=== PATIENT | female | born 1940 | race Caucasian/White ===

== ENCOUNTER 2016-09-29 08:22 | Inpatient (IN) | payer OTHER ==
[~2016-09-29] VITALS: Ht 163.8 cm; Wt 109.8 kg
[~2016-09-29 08:22] MED LIST: ALDACTONE25 MG PO; CALCIUM 500 MG1 EACH PO; CARDIZEM LA300 MG PO; CYANOCOBALAMI100 MCG PO; DILAUDID4 MG PO; DILTIAZEM 24HR300 MG PO; FLUOXETINE HCL20 MG PO; LASIX20 MG PO; MYCOSTATIN1 APPLICAT TP; OXYCODONE HCL30 MG PO; PROAIR HFA8.5 GM IH; PROZAC20 MG PO; RANITIDINE HCL300 MG PO; RECLAST5 MG/100 M IV; ROXICODONE15 MG PO; ROXICODONE30 MG PO; SYMBICORT60 INHALAT IH; VALIUM5 MG PO; VITAMIN B-650 M1 PO; VITAMIN B-650 MG PO; VITAMIN B12 100MCG PO; VITAMIN D5000 UNI1 PO; VITAMIN E200 UNI2 PO; XYZAL5 MG PO; ZANAFLEX4 M1 PO; ZANTAC300 MG PO; [UNRECOGNIZED DRUG - OTHER] PO
[2016-09-29] MEDS ORDERED: VITAMIN D35000 UNIT PO (09:49)
[2016-09-29 09:58] VITALS: BP 166/82
[2016-09-29 16:35] VITALS: BP 190/92
[2016-09-29 19:59] VITALS: BP 173/73
[2016-09-29 20:59] VITALS: BP 145/78
[2016-09-30] VITALS (8 sets, daily range): BP systolic 145–198; BP diastolic 72–90
[2016-09-30 06:33] LABS: HEMATOCRIT 36.8 % (36.0-46.0); MCH 29.4 PG (29.0-34.0); MCV 86.6 FL (83-99); MEAN PLAT.VOLUME 9.1 uM^3 (9.5-12.4); PLATELET COUNT 318 K/uL (156-360); RBC DIS.WIDTH-CV 13.6 % (11.8-14.6); RBC DIS.WIDTH-SD 43.1 % (39-53); RED BLOOD COUNT 4.25 M/uL (3.80-5.20); WHITE BLOOD COUNT 16.1 K/uL (4.1-10.2)
[2016-09-30 06:59] LABS: ANION GAP 9 MEQ/L (2-14); CHLORIDE 94 MEQ/L (99-109); GFR ESTIMATE (CALCULATED) > 59 mL/min/; GLUCOSE 183 mg/dL (70-99); MAGNESIUM 1.5 mg/dl (1.3-2.7); POTASSIUM 3.3 MEQ/L (3.7-5.4); SAMPLE HEMOLYSIS CHECK 0; SAMPLE ICTERIC CHECK 0; SAMPLE LIPEMIA CHECK 0; SODIUM 129 MEQ/L (136-147); UREA NITROGEN (BUN) 5 mg/dL (9-23)
[2016-10-01] VITALS (9 sets, daily range): BP systolic 140–218; BP diastolic 70–95
[2016-10-01 05:37] LABS: ANION GAP 13 MEQ/L (2-14); CHLORIDE 98 MEQ/L (99-109); GFR ESTIMATE (CALCULATED) > 59 mL/min/; GLUCOSE 137 mg/dL (70-99); SAMPLE HEMOLYSIS CHECK 1; SAMPLE ICTERIC CHECK 0; SAMPLE LIPEMIA CHECK 0; SODIUM 135 MEQ/L (136-147); UREA NITROGEN (BUN) 7 mg/dL (9-23)
[2016-10-01 05:49] LABS: MAGNESIUM 1.6 mg/dl (1.3-2.7); POTASSIUM 3.6 MEQ/L (3.7-5.4)
[2016-10-02 06:37] LABS: ANION GAP 10 MEQ/L (2-14); CHLORIDE 99 MEQ/L (99-109); GFR ESTIMATE (CALCULATED) > 59 mL/min/; GLUCOSE 115 mg/dL (70-99); MAGNESIUM 1.7 mg/dl (1.3-2.7); POTASSIUM 3.1 MEQ/L (3.7-5.4); SAMPLE HEMOLYSIS CHECK 0; SAMPLE ICTERIC CHECK 0; SAMPLE LIPEMIA CHECK 0; SODIUM 138 MEQ/L (136-147); UREA NITROGEN (BUN) 11 mg/dL (9-23)
[2016-10-02 06:54] LABS: HEMATOCRIT 35.4 % (36.0-46.0); MCH 29.2 PG (29.0-34.0); MCHC 33.3 G/DL (30.0-36.0); MCV 87.6 FL (83-99); MEAN PLAT.VOLUME 9.3 uM^3 (9.5-12.4); PLATELET COUNT 331 K/uL (156-360); RBC DIS.WIDTH-CV 14.2 % (11.8-14.6); RBC DIS.WIDTH-SD 44.7 % (39-53); RED BLOOD COUNT 4.04 M/uL (3.80-5.20)
[2016-10-02 06:55] LABS: WHITE BLOOD COUNT 10.9 K/uL (4.1-10.2)
[2016-10-02 08:30] VITALS: BP 180/70
[2016-10-02 11:30] VITALS: BP 160/91
[2016-10-02 15:19] VITALS: BP 184/86
[2016-10-02 21:02] VITALS: BP 107/80; BP 170/80
[2016-10-03] VITALS (7 sets, daily range): BP systolic 135–180; BP diastolic 67–90
[2016-10-03 06:03] LABS: HEMATOCRIT 35.2 % (36.0-46.0); MCH 29.5 PG (29.0-34.0); MCHC 33.2 G/DL (30.0-36.0); MCV 88.7 FL (83-99); MEAN PLAT.VOLUME 9.5 uM^3 (9.5-12.4); PLATELET COUNT 333 K/uL (156-360); RBC DIS.WIDTH-CV 14.3 % (11.8-14.6); RBC DIS.WIDTH-SD 46.4 % (39-53); RED BLOOD COUNT 3.97 M/uL (3.80-5.20)
[2016-10-03 06:30] LABS: ANION GAP 8 MEQ/L (2-14); CHLORIDE 100 MEQ/L (99-109); GFR ESTIMATE (CALCULATED) > 59 mL/min/; GLUCOSE 131 mg/dL (70-99); MAGNESIUM 1.9 mg/dl (1.3-2.7); SAMPLE HEMOLYSIS CHECK 0; SAMPLE ICTERIC CHECK 0; SAMPLE LIPEMIA CHECK 0; SODIUM 135 MEQ/L (136-147); UREA NITROGEN (BUN) 14 mg/dL (9-23)
[2016-10-03 06:31] LABS: POTASSIUM 4.1 MEQ/L (3.7-5.4)
[2016-10-04 05:38] LABS: MCH 29.3 PG (29.0-34.0); MCHC 32.9 G/DL (30.0-36.0); MCV 89.3 FL (83-99); MEAN PLAT.VOLUME 9.4 uM^3 (9.5-12.4); PLATELET COUNT 331 K/uL (156-360); RBC DIS.WIDTH-CV 14.4 % (11.8-14.6); RBC DIS.WIDTH-SD 47.2 % (39-53); RED BLOOD COUNT 3.92 M/uL (3.80-5.20); WHITE BLOOD COUNT 9.4 K/uL (4.1-10.2)
[2016-10-04 06:23] LABS: ANION GAP 9 MEQ/L (2-14); CHLORIDE 100 MEQ/L (99-109); GFR ESTIMATE (CALCULATED) > 59 mL/min/; GLUCOSE 113 mg/dL (70-99); POTASSIUM 4.3 MEQ/L (3.7-5.4); SAMPLE HEMOLYSIS CHECK 0; SAMPLE ICTERIC CHECK 0; SAMPLE LIPEMIA CHECK 0; SODIUM 137 MEQ/L (136-147); UREA NITROGEN (BUN) 11 mg/dL (9-23)
[2016-10-04 06:25] LABS: MAGNESIUM 2.2 mg/dl (1.3-2.7)
[2016-10-04 08:03] VITALS: BP 174/80
[2016-10-04 16:00] VITALS: BP 158/82
[2016-10-04 23:54] VITALS: BP 154/71
[2016-10-05] VITALS: BP 154/71
[2016-10-05 06:07] LABS: HEMATOCRIT 34.3 % (36.0-46.0); MCH 29.1 PG (29.0-34.0); MCHC 32.4 G/DL (30.0-36.0); MEAN PLAT.VOLUME 9.5 uM^3 (9.5-12.4); PLATELET COUNT 293 K/uL (156-360); RBC DIS.WIDTH-CV 14.4 % (11.8-14.6); RBC DIS.WIDTH-SD 47.6 % (39-53); RED BLOOD COUNT 3.81 M/uL (3.80-5.20)
[2016-10-05 06:37] LABS: ANION GAP 8 MEQ/L (2-14); CHLORIDE 100 MEQ/L (99-109); GFR ESTIMATE (CALCULATED) > 59 mL/min/; GLUCOSE 97 mg/dL (70-99); POTASSIUM 4.1 MEQ/L (3.7-5.4); SAMPLE HEMOLYSIS CHECK 0; SAMPLE ICTERIC CHECK 0; SAMPLE LIPEMIA CHECK 0; SODIUM 137 MEQ/L (136-147); UREA NITROGEN (BUN) 11 mg/dL (9-23)
[2016-10-05 07:24] VITALS: BP 167/71
[2016-10-05 15:58] VITALS: BP 138/70
[2016-10-06 00:14] VITALS: BP 141/68
[2016-10-06 00:22] VITALS: BP 141/68
[2016-10-06 05:40] LABS: HEMATOCRIT 33.5 % (36.0-46.0); MCH 27.7 PG (29.0-34.0); MCV 89.3 FL (83-99); MEAN PLAT.VOLUME 9.1 uM^3 (9.5-12.4); PLATELET COUNT 318 K/uL (156-360); RBC DIS.WIDTH-CV 14.4 % (11.8-14.6); RBC DIS.WIDTH-SD 46.8 % (39-53); RED BLOOD COUNT 3.75 M/uL (3.80-5.20); WHITE BLOOD COUNT 10.9 K/uL (4.1-10.2)
[2016-10-06 06:03] LABS: ANION GAP 7 MEQ/L (2-14); CHLORIDE 97 MEQ/L (99-109); GFR ESTIMATE (CALCULATED) > 59 mL/min/; GLUCOSE 114 mg/dL (70-99); MAGNESIUM 1.8 mg/dl (1.3-2.7); POTASSIUM 3.9 MEQ/L (3.7-5.4); SAMPLE HEMOLYSIS CHECK 0; SAMPLE ICTERIC CHECK 0; SAMPLE LIPEMIA CHECK 0; SODIUM 134 MEQ/L (136-147); UREA NITROGEN (BUN) 13 mg/dL (9-23)
[2016-10-06 07:46] VITALS: BP 142/70
[2016-10-06 12:17] VITALS: BP 142/74
[2016-10-06 15:54] VITALS: BP 149/65
[2016-10-06 20:40] VITALS: BP 131/60
[2016-10-07 00:32] VITALS: BP 144/62
[2016-10-07 08:21] VITALS: BP 129/64
[2016-10-07 08:30] VITALS: BP 129/64
== END 2016-10-07 13:32 | disposition home or self-care (01) | DRG 330 ==
LOC: 2SOUTH 08:22 → 3EAST 09:06 → 2SOUTH 11:11 → 3EAST 16:25
PROVIDERS: Physician Assistant; Surgery
PROC: 0WQF0ZZ Repair Abdominal Wall, Open Approach (ICD-10-PCS; principal; 2016-09-29)
PROC: 0DTF0ZZ Resection of Right Large Intestine, Open Approach (ICD-10-PCS; principal; 2016-09-29)
DX: C18.2 Malignant neoplasm of ascending colon (principal); K43.6 Other and unspecified ventral hernia with obstruction, without gangrene; D12.6 Benign neoplasm of colon, unspecified; M10.9 Gout, unspecified; J44.9 Chronic obstructive pulmonary disease, unspecified; I10 Essential (primary) hypertension; Z87.891 Personal history of nicotine dependence
CPT/HCPCS: 70450; 71010; 71250; 80048; 83735; 84100; 85027; 86850; 86900; 86901; 86920; 88305; 88309; 93971; 94640; 94640 76; 94799; 99202; J0131; J0330; J1170; J1200; J1335; J1644; J1885; J2270; J2405; J2550; J2710; J2765; J3010; J7040; J7050; J7120; S0028

== ENCOUNTER 2016-10-19 17:30 | Inpatient (IN) | payer OTHER ==
[~2016-10-19] VITALS: Ht 163.8 cm; Wt 110.3 kg
[~2016-10-19 17:30] MED LIST changes: +VITAMIN D35000 UNIT PO
[2016-10-19 18:29] LABS: HEMATOCRIT 33.8 % (36.0-46.0); MCH 28.8 PG (29.0-34.0); MCHC 31.7 G/DL (30.0-36.0); MCV 91.1 FL (83-99); MEAN PLAT.VOLUME 8.3 uM^3 (9.5-12.4); PLATELET COUNT 400 K/uL (156-360); RBC DIS.WIDTH-CV 14.2 % (11.8-14.6); RBC DIS.WIDTH-SD 46.8 % (39-53); RED BLOOD COUNT 3.71 M/uL (3.80-5.20); WHITE BLOOD COUNT 9.3 K/uL (4.1-10.2)
[2016-10-19 18:38] LABS: CHLORIDE 102 mEq/L (99-109); SODIUM 140 mEq/L (136-147)
[2016-10-19 18:39] LABS: INTER. NORMALIZED RATIO 1.1; PROTHROMBIN TIME 10.9 (9.2-11.2)
[2016-10-19 18:40] LABS: GLUCOSE 92 mg/dL (70-99)
[2016-10-19 18:41] LABS: ANION GAP 11 MEQ/L (2-14)
[2016-10-19 18:42] LABS: TOTAL BILIRUBIN 0.3 mg/dL (0.0-1.0)
[2016-10-19 18:43] LABS: ALKALINE PHOSPHATASE 71 IU/L (3-129)
[2016-10-19 18:44] LABS: GFR ESTIMATE (CALCULATED) > 59 mL/min/
[2016-10-19 18:45] LABS: UREA NITROGEN (BUN) 11 mg/dL (9-23)
[2016-10-19 18:52] LABS: PTT 28.3 (25-32)
[2016-10-19 20:01] LABS: TROP-I INTERPRETATION NEGATIVE; TROPONIN-I < 0.01 ng/mL (0.0-0.30)
[2016-10-19] MEDS ORDERED: TRAZODONE HCL50 MG PO (20:50)
[2016-10-19] MEDS ORDERED: RANITIDINE HCL300 MG PO (20:50)
[2016-10-20 02:22] LABS: INTER. NORMALIZED RATIO 1.1; PROTHROMBIN TIME 11.6 (9.2-11.2)
[2016-10-20 06:21] LABS: HEMATOCRIT 29.4 % (36.0-46.0); MCH 28.8 PG (29.0-34.0); MCHC 31.6 G/DL (30.0-36.0); MEAN PLAT.VOLUME 8.2 uM^3 (9.5-12.4); PLATELET COUNT 331 K/uL (156-360); RBC DIS.WIDTH-CV 14.1 % (11.8-14.6); RBC DIS.WIDTH-SD 46.7 % (39-53); RED BLOOD COUNT 3.23 M/uL (3.80-5.20); WHITE BLOOD COUNT 6.8 K/uL (4.1-10.2)
[2016-10-20 06:52] LABS: TROP-I INTERPRETATION NEGATIVE; TROPONIN-I < 0.01 ng/mL (0.0-0.30)
[2016-10-20 07:48] VITALS: BP 134/65
[2016-10-20 09:18] LABS: INTER. NORMALIZED RATIO 1.1; PROTHROMBIN TIME 11.3 (9.2-11.2)
[2016-10-20 09:21] LABS: PTT 37.3 (25-32)
[2016-10-20 11:36] VITALS: BP 174/82
[2016-10-20 12:48] LABS: TROP-I INTERPRETATION NEGATIVE; TROPONIN-I < 0.01 ng/mL (0.0-0.30)
[2016-10-20 15:23] VITALS: BP 144/73
[2016-10-20 18:54] VITALS: BP 165/76
[2016-10-20 19:40] VITALS: BP 152/70
[2016-10-20 23:42] VITALS: BP 124/78
[2016-10-21 04:25] VITALS: BP 130/82
[2016-10-21 08:03] VITALS: BP 120/56
[2016-10-21 11:39] VITALS: BP 132/70
[2016-10-21 15:32] VITALS: BP 119/58
[2016-10-21 20:08] VITALS: BP 132/62
[2016-10-21 23:07] VITALS: BP 116/57
[2016-10-22 04:48] VITALS: BP 113/57
[2016-10-22 07:16] LABS: HEMATOCRIT 28.1 % (36.0-46.0); MCH 28.8 PG (29.0-34.0); MEAN PLAT.VOLUME 8.8 uM^3 (9.5-12.4); PLATELET COUNT 340 K/uL (156-360); RBC DIS.WIDTH-CV 14.3 % (11.8-14.6); RED BLOOD COUNT 3.02 M/uL (3.80-5.20); WHITE BLOOD COUNT 6.3 K/uL (4.1-10.2)
[2016-10-22 07:44] LABS: ANION GAP 7 MEQ/L (2-14); CHLORIDE 104 MEQ/L (99-109); GFR ESTIMATE (CALCULATED) > 59 mL/min/; GLUCOSE 126 mg/dL (70-99); SAMPLE HEMOLYSIS CHECK 0; SAMPLE ICTERIC CHECK 0; SAMPLE LIPEMIA CHECK 0; SODIUM 142 MEQ/L (136-147); UREA NITROGEN (BUN) 7 mg/dL (9-23)
[2016-10-22 08:00] VITALS: BP 125/60
[2016-10-22 12:00] VITALS: BP 125/58
[2016-10-22 16:13] VITALS: BP 112/58
[2016-10-22 20:27] VITALS: BP 135/60
[2016-10-22 20:40] LABS: INTERNAL CONTROL VALID? YES
[2016-10-23] VITALS (7 sets, daily range): BP systolic 129–195; BP diastolic 62–91
[2016-10-23 08:05] LABS: MCH 28.9 PG (29.0-34.0); MCHC 31.3 G/DL (30.0-36.0); MCV 92.3 FL (83-99); MEAN PLAT.VOLUME 8.9 uM^3 (9.5-12.4); PLATELET COUNT 372 K/uL (156-360); RBC DIS.WIDTH-CV 14.1 % (11.8-14.6); RBC DIS.WIDTH-SD 47.4 % (39-53); RED BLOOD COUNT 3.36 M/uL (3.80-5.20)
[2016-10-23 08:25] LABS: ANION GAP 7 MEQ/L (2-14); CHLORIDE 103 MEQ/L (99-109); GFR ESTIMATE (CALCULATED) > 59 mL/min/; SAMPLE HEMOLYSIS CHECK 0; SAMPLE ICTERIC CHECK 0; SAMPLE LIPEMIA CHECK 0; SODIUM 141 MEQ/L (136-147); UREA NITROGEN (BUN) 6 mg/dL (9-23)
[2016-10-23 08:26] LABS: GLUCOSE 93 mg/dL (70-99)
[2016-10-24 04:08] VITALS: BP 161/72
[2016-10-24 08:27] VITALS: BP 132/63
[2016-10-24 12:28] VITALS: BP 122/60
[2016-10-24 16:52] VITALS: BP 114/66
[2016-10-24 19:38] VITALS: BP 124/60
[2016-10-24 23:50] VITALS: BP 122/63
[2016-10-25 04:12] VITALS: BP 120/58
[2016-10-25 07:35] LABS: HEMATOCRIT 28.3 % (36.0-46.0); MCH 28.1 PG (29.0-34.0); MCHC 30.4 G/DL (30.0-36.0); MCV 92.5 FL (83-99); MEAN PLAT.VOLUME 8.5 uM^3 (9.5-12.4); PLATELET COUNT 370 K/uL (156-360); RBC DIS.WIDTH-CV 14.1 % (11.8-14.6); RBC DIS.WIDTH-SD 47.8 % (39-53); RED BLOOD COUNT 3.06 M/uL (3.80-5.20); WHITE BLOOD COUNT 6.6 K/uL (4.1-10.2)
[2016-10-25 07:57] LABS: ANION GAP 5 MEQ/L (2-14); CHLORIDE 100 MEQ/L (99-109); GFR ESTIMATE (CALCULATED) > 59 mL/min/; GLUCOSE 102 mg/dL (70-99); POTASSIUM 4.6 MEQ/L (3.7-5.4); SAMPLE HEMOLYSIS CHECK 0; SAMPLE ICTERIC CHECK 0; SAMPLE LIPEMIA CHECK 0; SODIUM 138 MEQ/L (136-147); UREA NITROGEN (BUN) 11 mg/dL (9-23)
[2016-10-25 09:00] VITALS: BP 123/55; BP 23/55
[2016-10-25 12:30] VITALS: BP 114/57
[2016-10-25 16:00] VITALS: BP 118/55
[2016-10-25 20:00] VITALS: BP 139/65
[2016-10-26] VITALS (7 sets, daily range): BP systolic 103–153; BP diastolic 51–73
[2016-10-26 07:05] LABS: HEMATOCRIT 27.5 % (36.0-46.0); MCH 28.7 PG (29.0-34.0); MCHC 30.9 G/DL (30.0-36.0); MCV 92.9 FL (83-99); MEAN PLAT.VOLUME 8.7 uM^3 (9.5-12.4); PLATELET COUNT 375 K/uL (156-360); RBC DIS.WIDTH-CV 13.8 % (11.8-14.6); RBC DIS.WIDTH-SD 47.1 % (39-53); RED BLOOD COUNT 2.96 M/uL (3.80-5.20)
[2016-10-27 03:00] VITALS: BP 141/65
[2016-10-27 08:00] VITALS: BP 125/62
[2016-10-27 12:01] VITALS: BP 131/63
[2016-10-27 15:29] VITALS: BP 100/61
[2016-10-27] MEDS ORDERED: DOCUSATE SODIU100 MG PO (15:48)
[2016-10-27] MEDS ORDERED: POLYETHYLENE GL17 GM PO (15:48)
[2016-10-27] MEDS ORDERED: XARELTO15 MG PO (15:50)
[2016-10-27] MEDS ORDERED: OXYCODONE HCL30 MG PO (15:51)
== END 2016-10-27 17:00 | DRG 299 ==
LOC: EME 17:30 → EDOF 22:12 → 4SOUTH 22:12 → EDOF 10-20 07:00 → 4SOUTH 10-20 18:14
PROVIDERS: Emergency Medicine; Hospitalist; Nurse Practitioner Family
DX: I82.431 Acute embolism and thrombosis of right popliteal vein (principal); I26.99 Other pulmonary embolism without acute cor pulmonale; C18.2 Malignant neoplasm of ascending colon; E66.01 Morbid (severe) obesity due to excess calories; Z68.41 Body mass index [BMI] 40.0-44.9, adult; D63.0 Anemia in neoplastic disease; J44.9 Chronic obstructive pulmonary disease, unspecified; M79.604 Pain in right leg; M48.06 Spinal stenosis, lumbar region; G89.29 Other chronic pain; E11.9 Type 2 diabetes mellitus without complications; I10 Essential (primary) hypertension; F39 Unspecified mood [affective] disorder; Z90.49 Acquired absence of other specified parts of digestive tract; Z87.891 Personal history of nicotine dependence
CPT/HCPCS: 71010; 80048; 80053; 82272; 84484; 85027; 85610; 85730; 93005; 93971; 94640; 94640 76; 94799; 97530 GP; 99202; 99281; 99285; J1650; J2270; J2405

== ENCOUNTER 2017-05-13 17:42 | Inpatient (IN) | payer OTHER ==
[~2017-05-13] VITALS: Ht 165.1 cm; Wt 111.1 kg
[~2017-05-13 17:42] MED LIST changes: +DOCUSATE SODIU100 MG PO; +POLYETHYLENE GL17 GM PO; +TRAZODONE HCL50 MG PO; +XARELTO15 MG PO
[2017-05-13] MEDS ORDERED: OXYCODONE HCL30 MG PO (23:28)
[2017-05-13] MEDS ORDERED: MEDROL4 MG PO ×3 (23:30→23:31)
[2017-05-13] MEDS ORDERED: BACLOFEN10 MG PO (23:30)
[2017-05-13] MEDS ORDERED: XARELTO20 MG PO (23:31)
[2017-05-14 01:04] LABS: CHLORIDE 101 mEq/L (99-109); POTASSIUM 3.7 mEq/L (3.7-5.4); SODIUM 141 mEq/L (136-147)
[2017-05-14 01:06] LABS: GLUCOSE 105 mg/dL (70-99)
[2017-05-14 01:07] LABS: ANION GAP 11 MEQ/L (2-14)
[2017-05-14 01:09] LABS: GFR ESTIMATE (CALCULATED) > 59 mL/min/
[2017-05-14 01:10] LABS: UREA NITROGEN (BUN) 14 mg/dL (9-23)
[2017-05-14 01:53] VITALS: BP 184/75
[2017-05-14 04:03] VITALS: BP 173/76
[2017-05-14 07:19] VITALS: BP 137/69
[2017-05-14 20:00] VITALS: BP 132/63
[2017-05-14 23:31] VITALS: BP 154/67
[2017-05-15 03:18] VITALS: BP 183/84
[2017-05-15 08:17] VITALS: BP 170/82
[2017-05-15 11:52] VITALS: BP 123/60
[2017-05-15 15:49] VITALS: BP 113/53
[2017-05-15 20:00] VITALS: BP 110/65
[2017-05-16 01:27] VITALS: BP 133/65
[2017-05-16 03:37] VITALS: BP 139/75
[2017-05-16 07:40] VITALS: BP 146/66
[2017-05-16 12:36] VITALS: BP 156/81
[2017-05-16] MEDS ORDERED: OXYCODONE HCL5 MG PO (17:08)
[2017-05-16] MEDS ORDERED: MORPHINE SULFAT60 MG PO (17:08)
[2017-05-16] MEDS ORDERED: BACLOFEN10 MG PO (17:08)
[2017-05-16] MEDS ORDERED: GABAPENTIN300 MG PO (17:09)
[2017-05-16 19:51] VITALS: BP 140/65
[2017-05-17 00:12] VITALS: BP 123/60
[2017-05-17 04:42] VITALS: BP 149/70
[2017-05-17 08:30] VITALS: BP 133/61
[2017-05-17 11:37] VITALS: BP 168/82
[2017-05-17 15:36] VITALS: BP 175/79
[2017-05-17 16:23] LABS: ANION GAP 7 MEQ/L (2-14); CHLORIDE 96 MEQ/L (99-109); SAMPLE HEMOLYSIS CHECK 0; SAMPLE ICTERIC CHECK 0; SAMPLE LIPEMIA CHECK 0
[2017-05-17 16:29] LABS: GFR ESTIMATE (CALCULATED) > 59 mL/min/; GLUCOSE 136 mg/dL (70-99); UREA NITROGEN (BUN) 16 mg/dL (9-23)
[2017-05-17 16:30] LABS: POTASSIUM 4.8 MEQ/L (3.7-5.4); SODIUM 133 MEQ/L (136-147)
[2017-05-17 16:45] LABS: HEMATOCRIT 41.6 % (36.0-46.0); MCHC 31.5 G/DL (30.0-36.0); MCV 95.2 FL (83-99); MEAN PLAT.VOLUME 9.4 uM^3 (9.5-12.4); PLATELET COUNT 298 K/uL (156-360); RBC DIS.WIDTH-CV 17.5 % (11.8-14.6); RBC DIS.WIDTH-SD 62.2 % (39-53); RED BLOOD COUNT 4.37 M/uL (3.80-5.20); WHITE BLOOD COUNT 12.4 K/uL (4.1-10.2)
[2017-05-17 19:30] VITALS: BP 139/65
[2017-05-17 19:54] LABS: ADD MIUA? YES; BILIRUBIN NEGATIVE; BLOOD NEGATIVE; COLOR AMBER ((YELLOW)); GLUCOSE (STRIP) NEGATIVE; KETONES NEGATIVE; LEUKOCYTES SMALL; NITRITE NEGATIVE; PROTEIN (STRIP) NEGATIVE; SPECIFIC GRAVITY 1.027 (1.000-1.030); UROBILINOGEN 0.2 MG/DL (0.2-1.0)
[2017-05-17 20:04] LABS: BACTERIA 1+ /HPF; CALCIUM OXALATE CRYSTALS 2+ /HPF; EPITHELIAL CELLS 1+ /HPF; MUCUS 2+ /LPF; RED BLOOD CELLS 0-5 /HPF (0-5); UCUL ADDED? YES
[2017-05-18 00:06] VITALS: BP 131/62
[2017-05-18 04:33] VITALS: BP 133/67
[2017-05-18 07:20] LABS: HEMATOCRIT 36.5 % (36.0-46.0); MCH 30.4 PG (29.0-34.0); MCHC 31.8 G/DL (30.0-36.0); MCV 95.8 FL (83-99); MEAN PLAT.VOLUME 9.3 uM^3 (9.5-12.4); PLATELET COUNT 229 K/uL (156-360); RBC DIS.WIDTH-CV 17.5 % (11.8-14.6); RBC DIS.WIDTH-SD 61.5 % (39-53); RED BLOOD COUNT 3.81 M/uL (3.80-5.20)
[2017-05-18 07:49] LABS: ANION GAP 5 MEQ/L (2-14); CHLORIDE 100 MEQ/L (99-109); GFR ESTIMATE (CALCULATED) > 59 mL/min/; GLUCOSE 146 mg/dL (70-99); POTASSIUM 3.9 MEQ/L (3.7-5.4); SAMPLE HEMOLYSIS CHECK 0; SAMPLE ICTERIC CHECK 0; SAMPLE LIPEMIA CHECK 0; SODIUM 138 MEQ/L (136-147); UREA NITROGEN (BUN) 16 mg/dL (9-23)
[2017-05-18 08:26] VITALS: BP 153/70
[2017-05-18 12:27] VITALS: BP 132/77
[2017-05-18] MEDS ORDERED: AMOX TR-K CLV1 EAC4 PO (14:03)
[2017-05-18 15:52] VITALS: BP 124/63
[2017-05-18] MEDS ORDERED: MORPHINE SULFAT30 M2 PO (16:15)
[2017-05-18] MEDS ORDERED: OXYCODONE HCL30 MG PO (16:29)
== END 2017-05-18 18:37 | DRG 552 ==
LOC: EME 17:42 → EDOF 23:57 → ENRESERV 23:59 → 5WEST 05-14 01:43 → CANRESERV 05-15 10:42 → ENRESERV 05-15 10:42 → CANRESERV 05-15 12:49 → 5WEST 05-18 18:37
PROVIDERS: Nurse Practitioner Family; Physician Assistant Medical
DX: S32.058A Other fracture of fifth lumbar vertebra, initial encounter for closed fracture (principal); W01.0XXA Fall on same level from slipping, tripping and stumbling without subsequent striking against object, initial encounter; Y92.003 Bedroom of unspecified non-institutional (private) residence as the place of occurrence of the external cause; G89.4 Chronic pain syndrome; N39.0 Urinary tract infection, site not specified; R26.2 Difficulty in walking, not elsewhere classified; I10 Essential (primary) hypertension; J44.9 Chronic obstructive pulmonary disease, unspecified; I25.10 Atherosclerotic heart disease of native coronary artery without angina pectoris; K21.9 Gastro-esophageal reflux disease without esophagitis; M47.26 Other spondylosis with radiculopathy, lumbar region; M43.16 Spondylolisthesis, lumbar region; E66.01 Morbid (severe) obesity due to excess calories; Z68.41 Body mass index [BMI] 40.0-44.9, adult; Z79.01 Long term (current) use of anticoagulants; Z79.51 Long term (current) use of inhaled steroids; Z98.1 Arthrodesis status; Z86.711 Personal history of pulmonary embolism; Z86.718 Personal history of other venous thrombosis and embolism; Z87.891 Personal history of nicotine dependence; Z85.038 Personal history of other malignant neoplasm of large intestine; Z90.710 Acquired absence of both cervix and uterus; Z90.49 Acquired absence of other specified parts of digestive tract; Z82.49 Family history of ischemic heart disease and other diseases of the circulatory system
CPT/HCPCS: 71020; 72131; 72158; 80048; 81003; 83605; 85027; 87040; 87086; 87493; 94640 76; 94760; 94799; 97530 GP; 99202; 99281; 99285; G0378; J1170; J2270; J2405; J2930